=== PATIENT | male | born 1930 | race Caucasian/White ===

== ENCOUNTER → 2016-09-02 | Outpatient (CLI) | payer MEDICARE ==
[2016-09-02 09:11] LABS: CH 32.3; CHCM 33.5; HCT 48.7 % (39.0-53.0); HDW 2.67; HGB 15.8 gm/dL (13.0-17.5); MCH 31.5 pg (25.0-35.0); MCHC 32.5 g/dL (31.0-37.0); MCV 96.9 fL (80.0-100.0); Mean Platelet Volume 8.6; RBC 5.02 m/uL (4.30-5.90); RDW 14.2 % (11.5-15.5); WBC 4.4 k/uL (3.8-10.6)
[2016-09-02 10:13] LABS: Erythrocyte Sedimentation Rate 5 mm/hr (0-15)
[2016-09-02 12:41] LABS: ALT 31 U/L (21-72); AST 24 U/L (17-59); Alkaline Phosphatase 70 U/L (38-126); Anion Gap 10 mmol/L; Blood Urea Nitrogen 22 mg/dL (9-20); Calcium 9.3 mg/dL (8.4-10.2); Carbon Dioxide 28 mmol/L (22-30); Chloride 106 mmol/L (98-107); Cholesterol 191 mg/dL (<200); Glucose 80 mg/dL (74-99); HDL Cholesterol 51 mg/dL (40-60); Non-African American GFR(MDRD) 53 (>60 ml/min/1.73 sqM); Potassium 4.8 mmol/L (3.5-5.1); Sodium 144 mmol/L (137-145); Total Bilirubin 0.6 mg/dL (0.2-1.3); Total Protein 7.1 g/dL (6.3-8.2); Triglycerides 106 mg/dL (<150)
[2016-09-02 13:06] LABS: Prostate Specific Antigen 5.34 ng/mL (0.00-4.00)
[2016-09-02 13:14] LABS: Hemoglobin A1C 5.3 % (4.2-6.1)
== END | disposition home or self-care (01) ==
LOC: LABWHC1 07:49
PROVIDERS: ATTEND Internal Medicine
DX: I10 Essential (primary) hypertension (principal); E78.5 Hyperlipidemia, unspecified; N41.9 Inflammatory disease of prostate, unspecified
CPT/HCPCS: 36415; 80053; 80061; 83036; 84153; 84443; 85027; 85652

== ENCOUNTER 2017-12-22 01:30 | Emergency (ER) | payer MEDICARE ==
--- NOTE | 2017-12-22 02:13 | ED ---
Weakness HPI - General Chief complaint: Weakness Stated complaint: UTI,weakness Time Seen by Provider: 12/22/17 01:49 Source: patient Mode of arrival: wheelchair Limitations: no limitations - History of Present Illness Initial comments: This patient is an 87-year-old man who presents to be evaluated for worsening of generalized weakness. Things started about 24 hours ago now. He states that this was also accompanied by increasing frequency of urination. Patient relates that this same type of scenario happened when he had a urinary tract infection and then developed sepsis. Patient denies other symptoms. MD Complaint: generalized weakness, lack of energy -: hour(s) (24) Location: generalized Severity: moderate Consistency: constant Improves with: none Worsens with: other Context: history of similar - Related Data Home Medications Medication Instructions Recorded Confirmed Aspirin 81 mg PO DAILY 08/04/13 12/22/17 Enalapril [Vasotec] 10 mg PO DAILY 08/04/13 12/22/17 Omeprazole 40 mg PO AC-BRKFST 08/04/13 12/22/17 glyBURIDE/METFORMIN HCL 1 each PO DAILY 08/04/13 12/22/17 [Glucovance 2.5-500 mg Tablet] Finasteride [Proscar] 5 mg PO DAILY 12/22/17 12/22/17 Tasimelteon [Hetlioz] 20 mg PO DAILY 12/22/17 12/22/17 Previous Rx's Medication Instructions Recorded Levofloxacin [Levaquin] 750 mg PO DAILY #10 tab 12/22/17 Allergies Allergy/AdvReac Type Severity Reaction Status Date / Time No Known Allergies Allergy Verified 12/22/17 01:38 Review of Systems ROS Statement: Those systems with pertinent positive or pertinent negative responses have been documented in the HPI. ROS Other: All systems not noted in ROS Statement are negative. Constitutional: Reports: weakness (Generalized). Denies: fever, chills Respiratory: Denies: cough, dyspnea Cardiovascular: Denies: chest pain, palpitations, orthopnea, edema, syncope Gastrointestinal: Denies: abdominal pain, vomiting, diarrhea Genitourinary: Reports: urgency, frequency. Denies: dysuria, hematuria, testicular pain, testicular mass Musculoskeletal: Denies: back pain Skin: Denies: rash Neurological: Denies: headache, weakness, numbness, paresthesias Past Medical History Past Medical History: Diabetes Mellitus, Hypertension Additional Past Medical History / Comment(s): sciatica, back problems, UTIs History of Any Multi-Drug Resistant Organisms: None Reported Past Surgical History: Back Surgery Past Psychological History: No Psychological Hx Reported Smoking Status: Former smoker Past Alcohol Use History: Occasional Past Drug Use History: None Reported General Exam Limitations: no limitations General appearance: alert, in no apparent distress Head exam: Present: atraumatic, normocephalic Eye exam: Present: normal appearance. Absent: scleral icterus, conjunctival injection Respiratory exam: Present: normal lung sounds bilaterally. Absent: respiratory distress, wheezes, rales, rhonchi, stridor Cardiovascular Exam: Present: normal rhythm, tachycardia, systolic murmur ( Grade 1/6 systolic ejection murmur). Absent: diastolic murmur, rubs, gallop GI/Abdominal exam: Present: soft. Absent: distended, tenderness, guarding, rebound, rigid, mass, pulsatile mass Extremities exam: Present: normal inspection, normal capillary refill. Absent: pedal edema, joint swelling, calf tenderness Back exam: Present: normal inspection Neurological exam: Present: alert, oriented X3. Absent: motor sensory deficit Skin exam: Present: warm, dry, intact, normal color. Absent: rash Course Vital Signs 12/22/17 12/22/17 12/22/17 01:34 01:58 03:28 Temperature 98.2 F Pulse Rate 139 H 124 H 106 H Respiratory 18 20 18 Rate Blood Pressure 102/64 134/75 164/84 O2 Sat by Pulse 96 96 98 Oximetry Medical Decision Making - Lab Data Result diagrams: 12/22/17 01:56 12/22/17 01:56 Lab Results 12/22/17 12/22/17 12/22/17 Range/Units 01:56 01:56 01:56 WBC 8.3 (3.8-10.6) k/uL RBC 5.21 (4.30-5.90) m/uL Hgb 15.3 (13.0-17.5) gm/dL Hct 47.4 (39.0-53.0) % MCV 90.9 (80.0-100.0) fL MCH 29.4 (25.0-35.0) pg MCHC 32.4 (31.0-37.0) g/dL RDW 13.8 (11.5-15.5) % Plt Count 125 L (150-450) k/uL Neutrophils % 75 % Lymphocytes % 13 % Monocytes % 7 % Eosinophils % 3 % Basophils % 0 % Neutrophils # 6.2 (1.3-7.7) k/uL Lymphocytes # 1.1 (1.0-4.8) k/uL Monocytes # 0.6 (0-1.0) k/uL Eosinophils # 0.3 (0-0.7) k/uL Basophils # 0.0 (0-0.2) k/uL PT (9.0-12.0) sec INR (<1.2) APTT (22.0-30.0) sec Sodium 141 (137-145) mmol/L Potassium 4.4 (3.5-5.1) mmol/L Chloride 107 (98-107) mmol/L Carbon Dioxide 25 (22-30) mmol/L Anion Gap 9 mmol/L BUN 21 H (9-20) mg/dL Creatinine 1.13 (0.66-1.25) mg/dL Est GFR (CKD-EPI)AfAm 69 (>60 ml/min/1.73 sqM) Est GFR (CKD-EPI)NonAf 59 (>60 ml/min/1.73 sqM) Glucose 162 H (74-99) mg/dL Calcium 9.1 (8.4-10.2) mg/dL Magnesium 1.5 L (1.6-2.3) mg/dL Total Bilirubin 0.5 (0.2-1.3) mg/dL AST 20 (17-59) U/L ALT 23 (21-72) U/L Alkaline Phosphatase 65 (38-126) U/L Total Creatine Kinase 146 (55-170) U/L CK-MB (CK-2) 2.1 (0.0-2.4) ng/mL CK-MB (CK-2) Rel Index 1.4 Troponin I <0.012 (0.000-0.034) ng/mL NT-Pro-B Natriuret Pep pg/mL Total Protein 6.8 (6.3-8.2) g/dL Albumin 3.7 (3.5-5.0) g/dL TSH 3.260 (0.465-4.680) mIU/L Urine Color Urine Appearance (Clear) Urine pH (5.0-8.0) Ur Specific [place] (1.001-1.035) Urine Protein (Negative) Urine Glucose (UA) (Negative) Urine Ketones (Negative) Urine Blood (Negative) Urine Nitrite (Negative) Urine Bilirubin (Negative) Urine Urobilinogen (<2.0) mg/dL Ur Leukocyte Esterase (Negative) Urine RBC (0-5) /hpf Urine WBC (0-5) /hpf Urine WBC Clumps (None) /hpf Urine Bacteria (None) /hpf Hyaline Casts (0-2) /lpf Urine Mucus (None) /hpf 12/22/17 12/22/17 12/22/17 Range/Units 01:56 01:56 02:35 WBC (3.8-10.6) k/uL RBC (4.30-5.90) m/uL Hgb (13.0-17.5) gm/dL Hct (39.0-53.0) % MCV (80.0-100.0) fL MCH (25.0-35.0) pg MCHC (31.0-37.0) g/dL RDW (11.5-15.5) % Plt Count (150-450) k/uL Neutrophils % % Lymphocytes % % Monocytes % % Eosinophils % % Basophils % % Neutrophils # (1.3-7.7) k/uL Lymphocytes # (1.0-4.8) k/uL Monocytes # (0-1.0) k/uL Eosinophils # (0-0.7) k/uL Basophils # (0-0.2) k/uL PT 10.2 (9.0-12.0) sec INR 1.0 (<1.2) APTT 24.0 (22.0-30.0) sec Sodium (137-145) mmol/L Potassium (3.5-5.1) mmol/L Chloride (98-107) mmol/L Carbon Dioxide (22-30) mmol/L Anion Gap mmol/L BUN (9-20) mg/dL Creatinine (0.66-1.25) mg/dL Est GFR (CKD-EPI)AfAm (>60 ml/min/1.73 sqM) Est GFR (CKD-EPI)NonAf (>60 ml/min/1.73 sqM) Glucose (74-99) mg/dL Calcium (8.4-10.2) mg/dL Magnesium (1.6-2.3) mg/dL Total Bilirubin (0.2-1.3) mg/dL AST (17-59) U/L ALT (21-72) U/L Alkaline Phosphatase (38-126) U/L Total Creatine Kinase (55-170) U/L CK-MB (CK-2) (0.0-2.4) ng/mL CK-MB (CK-2) Rel Index Troponin I (0.000-0.034) ng/mL NT-Pro-B Natriuret Pep 363 pg/mL Total Protein (6.3-8.2) g/dL Albumin (3.5-5.0) g/dL TSH (0.465-4.680) mIU/L Urine Color Yellow Urine Appearance Clear (Clear) Urine pH 5.5 (5.0-8.0) Ur Specific [place] 1.012 (1.001-1.035) Urine Protein Trace H (Negative) Urine Glucose (UA) Negative (Negative) Urine Ketones Negative (Negative) Urine Blood Negative (Negative) Urine Nitrite Negative (Negative) Urine Bilirubin Negative (Negative) Urine Urobilinogen <2.0 (<2.0) mg/dL Ur Leukocyte Esterase Moderate H (Negative) Urine RBC 1 (0-5) /hpf Urine WBC 22 H (0-5) /hpf Urine WBC Clumps Rare H (None) /hpf Urine Bacteria Rare H (None) /hpf Hyaline Casts 3 H (0-2) /lpf Urine Mucus Rare H (None) /hpf Disposition Clinical Impression: Urinary tract infection, Dehydration Disposition: HOME SELF-CARE Condition: Good Instructions: Urinary Tract Infection in Men (ED) Prescriptions: Levofloxacin [Levaquin] 750 mg PO DAILY #10 tab Is patient prescribed a controlled substance at d/c from ED?: No Referrals: Bryce Hazel MD [Primary Care Provider] - 1-2 days
[2017-12-22 02:28] LABS: Creatine Kinase 146 U/L (55-170)
[2017-12-22 02:29] LABS: Albumin 3.7 g/dL (3.5-5.0); Basophils % (A) 0 %; Calcium 9.1 mg/dL (8.4-10.2); Eosinophils # (A) 0.3 k/uL (0-0.7); Eosinophils % (A) 3 %; HCT 47.4 % (39.0-53.0); HGB 15.3 gm/dL (13.0-17.5); Lymphocytes # (A) 1.1 k/uL (1.0-4.8); Lymphocytes % (A) 13 %; MCH 29.4 pg (25.0-35.0); MCHC 32.4 g/dL (31.0-37.0); MCV 90.9 fL (80.0-100.0); Magnesium 1.5 mg/dL (1.6-2.3); Mean Platelet Volume 8.4; Monocytes # (A) 0.6 k/uL (0-1.0); Monocytes % (A) 7 %; Neutrophils # (A) 6.2 k/uL (1.3-7.7); Neutrophils % (A) 75 %; Platelet Count 125 k/uL (150-450); Potassium 4.4 mmol/L (3.5-5.1); RBC 5.21 m/uL (4.30-5.90); RDW 13.8 % (11.5-15.5); Total Bilirubin 0.5 mg/dL (0.2-1.3); Total Protein 6.8 g/dL (6.3-8.2); WBC 8.3 k/uL (3.8-10.6)
[2017-12-22 02:34] LABS: Prothrombin Time 10.2 sec (9.0-12.0)
[2017-12-22 02:41] LABS: Creatine Kinase MB 2.1 ng/mL (0.0-2.4); Troponin I <0.012 ng/mL (0.000-0.034)
[2017-12-22] MEDS ORDERED: SODIUM CHLORIDE 0.9% 1,000 ML IV ONE (03:27)
--- NOTE | 2017-12-22 03:32 | XR ---
EXAM: XR Chest, 1 View CLINICAL HISTORY: ITS.REASON XR Reason: dysrhythmia TECHNIQUE: Frontal view of the chest. COMPARISON: No relevant prior studies available. IMPRESSION: Cardiomegaly. No pleural effusion. Bibasilar atelectasis. No acute osseous findings.
[2017-12-22 03:33] LABS: Appearance,Urine Clear (Clear); Bacteria,Urine Rare /hpf; Bilirubin,Urine Negative (Negative); Blood,Urine Negative (Negative); Color,Urine Yellow; Glucose,Urine (UA) Negative (Negative); Hyaline Casts,Urine 3 /lpf (0-2); Ketones,Urine Negative (Negative); Leukocyte Esterase,Urine Moderate (Negative); Mucus,Urine Rare /hpf; Nitrite,Urine Negative (Negative); PH, Urine 5.5 (5.0-8.0); Protein,Urine Trace (Negative); RBC,Urine 1 /hpf (0-5); Specific Gravity,Urine 1.012 (1.001-1.035); Urobilinogen,Urine <2.0 mg/dL (<2.0); WBC,Urine 22 /hpf (0-5)
[2017-12-22] MEDS ORDERED: LEVOFLOXACIN 750 MG TAB PO STA (04:55)
[2017-12-22 05:19] VITALS: BP 144/70; PULSE 104; RESP 20; TEMP 98
== END 2017-12-22 05:19 | disposition home or self-care (01) ==
LOC: EC 01:30
DX: N39.0 Urinary tract infection, site not specified (principal); E86.0 Dehydration; R53.1 Weakness; E11.9 Type 2 diabetes mellitus without complications; I10 Essential (primary) hypertension; Z87.891 Personal history of nicotine dependence; Z79.82 Long term (current) use of aspirin; Z79.84 Long term (current) use of oral hypoglycemic drugs; Z79.899 Other long term (current) drug therapy
CPT/HCPCS: 36415; 71045; 80053; 81001; 82550; 82553; 83735; 83880; 84443; 84484; 85025; 85610; 85730; 93005; 96360; 99285

== ENCOUNTER → 2018-08-30 | Outpatient (CLI) | payer MEDICARE ==
[2018-08-30 09:55] LABS: HCT 46.9 % (39.0-53.0); HGB 14.8 gm/dL (13.0-17.5); MCH 29.8 pg (25.0-35.0); MCHC 31.6 g/dL (31.0-37.0); MCV 94.2 fL (80.0-100.0); Mean Platelet Volume 8.7; Platelet Count 146 k/uL (150-450); RBC 4.97 m/uL (4.30-5.90); RDW 13.8 % (11.5-15.5); WBC 5.3 k/uL (3.8-10.6)
[2018-08-30 11:41] LABS: Erythrocyte Sedimentation Rate 7 mm/hr (0-15)
[2018-08-30 16:07] LABS: African American GFR (CKD) 63.1 (60.0-200.0); Albumin 4.3 g/dL (3.80-4.90); Albumin/Globulin Ratio 1.87 (1.60-3.17); Anion Gap 9.3 mmol/L (4.00-12.00); Calcium 9.3 mg/dL (8.7-10.3); Carbon Dioxide 28.7 mmol/L (21.6-31.8); Globulin 2.3 g/dL (1.6-3.3); LDL Cholesterol,Calculated 64.6 mg/dL (0.0-131.0); Total Bilirubin 0.5 mg/dL (0.2-1.2); Total Protein 6.6 g/dL (6.2-8.2); Uric Acid 5.1 mg/dL (3.7-8.7); VLDL Calculation 37.4 mg/dL (5.00-40.00)
[2018-08-30 17:20] LABS: Hemoglobin A1C 6.3 % (4.0-6.0)
== END | disposition home or self-care (01) ==
LOC: LABWHC1 08:03
PROVIDERS: ATTEND Internal Medicine
DX: E78.2 Mixed hyperlipidemia (principal); I10 Essential (primary) hypertension; E11.9 Type 2 diabetes mellitus without complications; N41.9 Inflammatory disease of prostate, unspecified; R51 Headache; I25.10 Atherosclerotic heart disease of native coronary artery without angina pectoris; M19.90 Unspecified osteoarthritis, unspecified site
CPT/HCPCS: 36415; 80053; 80061; 83036; 84153; 84443; 84550; 85027; 85652

== ENCOUNTER 2018-12-22 03:48 | Observation (INO) | payer MEDICARE ==
[2018-12-22] MEDS ORDERED: ACETAMINOPHEN TAB 325 MG TAB PO STA (03:56)
[2018-12-22] MEDS: SODIUM CHLORIDE 0.9% 500 ML 500 ML IV SCH (04:12)
--- NOTE | 2018-12-22 04:31 | ED ---
Male Urogenital HPI - General Chief complaint: Urogenital Stated complaint: Painful Urination Time Seen by Provider: 12/22/18 03:50 Source: EMS Mode of arrival: EMS Limitations: no limitations - History of Present Illness Initial comments: Apolinar is am 88yo male with asked medical history recurrent urinary tract infections related to prostatic hypertrophy. Patient follows with the urologist in [place] where he lives during the [place]. Patient reports that last year he underwent a bladder lift procedure and in attempts to avoid having to have a TU RP. Patient reports that he has not had a urinary tract infection since that time. Patient states that for the past 2 days she's had a little bit of dysuria and was concerned he was developing a urinary tract infection however during the night tonight he began having urinary frequency hesitancy and worsening dysuria. Patient reports he's needing to urinate every 30 minutes and each time he gets up to urinate he progressively feels weaker and weaker. - Related Data Home Medications Medication Instructions Recorded Confirmed Aspirin 81 mg PO DAILY 08/04/13 12/22/17 Enalapril [Vasotec] 10 mg PO DAILY 08/04/13 12/22/17 Omeprazole 40 mg PO AC-BRKFST 08/04/13 12/22/17 glyBURIDE/METFORMIN HCL 1 each PO DAILY 08/04/13 12/22/17 [Glucovance 2.5-500 mg Tablet] Finasteride [Proscar] 5 mg PO DAILY 12/22/17 12/22/17 Tasimelteon [Hetlioz] 20 mg PO DAILY 12/22/17 12/22/17 Previous Rx's Medication Instructions Recorded Levofloxacin [Levaquin] 750 mg PO DAILY #10 tab 12/22/17 Allergies Allergy/AdvReac Type Severity Reaction Status Date / Time No Known Allergies Allergy Verified 12/22/18 03:57 Review of Systems ROS Statement: Those systems with pertinent positive or pertinent negative responses have been documented in the HPI. ROS Other: All systems not noted in ROS Statement are negative. Past Medical History Past Medical History: Diabetes Mellitus, Hypertension Additional Past Medical History / Comment(s): sciatica, back problems, UTIs, History of Any Multi-Drug Resistant Organisms: None Reported Past Surgical History: Adenoidectomy, Appendectomy, Back Surgery, Tonsillectomy Additional Past Surgical History / Comment(s): achilles right side repair, Past Psychological History: No Psychological Hx Reported Smoking Status: Former smoker Past Alcohol Use History: Occasional Past Drug Use History: None Reported General Exam - General Exam Comments Initial Comments: Physical Exam GENERAL: Patient is well-developed and well-nourished. Patient is nontoxic and well- hydrated and is in no distress. HENT: Normocephalic, Atraumatic. EYES: PERRL, EOMI PULMONARY: Unlabored respirations. No audible rales rhonchi or wheezing was noted. CARDIOVASCULAR: There is a regular rate and rhythm without any murmurs gallops or rubs. ABDOMEN: Soft and nontender with normal bowel sounds. SKIN: Skin is clear with no lesions or rashes and otherwise unremarkable. : Deferred NEUROLOGIC: Patient is alert and oriented x3. Moving all extremities spontaneously MUSCULOSKELETAL: Normal extremities with adequate strength and full range of motion. No lower extremity swelling or edema. No calf tenderness. PSYCHIATRIC: Normal psychiatric evaluation. Limitations: no limitations Course Vital Signs 12/22/18 12/22/18 03:50 05:47 Temperature 100.4 F H 100.6 F H Pulse Rate 110 H 100 Respiratory 17 17 Rate Blood Pressure 118/71 146/67 O2 Sat by Pulse 98 97 Oximetry Medical Decision Making - Medical Decision Making She was seen and evaluated history was obtained from patient 88 her history of recurrent urinary tract infections in the past he took 1 dose of Levaquin prior to calling EMS. Patient is tachycardic and febrile on arrival Sepsis workup was initiated urinalysis consistent with urinary tract infection Rocephin was ordered Given patient's advanced age she was given only 1.5 L of fluid, and sitting that the patient is not in septic shock I do not feel that 30 mL/kg would be an appropriate dose. He appears well-hydrated he's tolerating by mouth intake. Labs resulted with no leukocytosis however there is lactic acidosis. Given the patient's advanced age, history of severe sepsis secondary UTI in the past I do feel he would benefit from admission the hospital IV fluids and antibiotics. Patient is agreeable to this plan. Patient care was discussed with Dr. Yousif who agrees with plan for admission. - Lab Data Result diagrams: 12/22/18 03:54 12/22/18 03:54 Lab Results 12/22/18 12/22/18 12/22/18 Range/Units 03:54 03:54 03:54 WBC 7.7 (3.8-10.6) k/uL RBC 4.73 (4.30-5.90) m/uL Hgb 14.0 (13.0-17.5) gm/dL Hct 44.2 (39.0-53.0) % MCV 93.4 (80.0-100.0) fL MCH 29.6 (25.0-35.0) pg MCHC 31.6 (31.0-37.0) g/dL RDW 13.5 (11.5-15.5) % Plt Count 120 L (150-450) k/uL Neutrophils % 86 % Lymphocytes % 7 % Monocytes % 3 % Eosinophils % 4 % Basophils % 0 % Neutrophils # 6.6 (1.3-7.7) k/uL Lymphocytes # 0.5 L (1.0-4.8) k/uL Monocytes # 0.3 (0-1.0) k/uL Eosinophils # 0.3 (0-0.7) k/uL Basophils # 0.0 (0-0.2) k/uL PT (9.0-12.0) sec INR (<1.2) APTT (22.0-30.0) sec Sodium 140 (137-145) mmol/L Potassium 4.6 (3.5-5.1) mmol/L Chloride 104 (98-107) mmol/L Carbon Dioxide 27 (22-30) mmol/L Anion Gap 9 mmol/L BUN 20 (9-20) mg/dL Creatinine 1.18 (0.66-1.25) mg/dL Est GFR (CKD-EPI)AfAm 64 (>60 ml/min/1.73 sqM) Est GFR (CKD-EPI)NonAf 56 (>60 ml/min/1.73 sqM) Glucose 136 H (74-99) mg/dL Plasma Lactic Acid Aubrey 2.1 H* (0.7-2.0) mmol/L Calcium 8.8 (8.4-10.2) mg/dL Total Bilirubin 0.7 (0.2-1.3) mg/dL AST 26 (17-59) U/L ALT 15 L (21-72) U/L Alkaline Phosphatase 83 (38-126) U/L Total Protein 7.1 (6.3-8.2) g/dL Albumin 3.8 (3.5-5.0) g/dL Urine Color Urine Appearance (Clear) Urine pH (5.0-8.0) Ur Specific [place] (1.001-1.035) Urine Protein (Negative) Urine Glucose (UA) (Negative) Urine Ketones (Negative) Urine Blood (Negative) Urine Nitrite (Negative) Urine Bilirubin (Negative) Urine Urobilinogen (<2.0) mg/dL Ur Leukocyte Esterase (Negative) Urine RBC (0-5) /hpf Urine WBC (0-5) /hpf Ur Squamous Epith Cells (0-4) /hpf Urine Bacteria (None) /hpf Urine Mucus (None) /hpf 12/22/18 12/22/18 Range/Units 03:54 03:59 WBC (3.8-10.6) k/uL RBC (4.30-5.90) m/uL Hgb (13.0-17.5) gm/dL Hct (39.0-53.0) % MCV (80.0-100.0) fL MCH (25.0-35.0) pg MCHC (31.0-37.0) g/dL RDW (11.5-15.5) % Plt Count (150-450) k/uL Neutrophils % % Lymphocytes % % Monocytes % % Eosinophils % % Basophils % % Neutrophils # (1.3-7.7) k/uL Lymphocytes # (1.0-4.8) k/uL Monocytes # (0-1.0) k/uL Eosinophils # (0-0.7) k/uL Basophils # (0-0.2) k/uL PT 10.7 (9.0-12.0) sec INR 1.0 (<1.2) APTT 22.8 (22.0-30.0) sec Sodium (137-145) mmol/L Potassium (3.5-5.1) mmol/L Chloride (98-107) mmol/L Carbon Dioxide (22-30) mmol/L Anion Gap mmol/L BUN (9-20) mg/dL Creatinine (0.66-1.25) mg/dL Est GFR (CKD-EPI)AfAm (>60 ml/min/1.73 sqM) Est GFR (CKD-EPI)NonAf (>60 ml/min/1.73 sqM) Glucose (74-99) mg/dL Plasma Lactic Acid Aubrey (0.7-2.0) mmol/L Calcium (8.4-10.2) mg/dL Total Bilirubin (0.2-1.3) mg/dL AST (17-59) U/L ALT (21-72) U/L Alkaline Phosphatase (38-126) U/L Total Protein (6.3-8.2) g/dL Albumin (3.5-5.0) g/dL Urine Color Yellow Urine Appearance Cloudy (Clear) Urine pH 6.5 (5.0-8.0) Ur Specific [place] 1.015 (1.001-1.035) Urine Protein 1+ H (Negative) Urine Glucose (UA) Negative (Negative) Urine Ketones Negative (Negative) Urine Blood Moderate H (Negative) Urine Nitrite Positive (Negative) Urine Bilirubin Negative (Negative) Urine Urobilinogen <2.0 (<2.0) mg/dL Ur Leukocyte Esterase Large H (Negative) Urine RBC 112 H (0-5) /hpf Urine WBC >182 H (0-5) /hpf Ur Squamous Epith Cells <1 (0-4) /hpf Urine Bacteria Rare H (None) /hpf Urine Mucus Rare H (None) /hpf - EKG Data -: EKG Interpreted by Me EKG Comments: EKG was obtained due to tachycardia, EKG obtained at 4:05 AM, rate is 112 rhythm is sinus tachycardia with frequent PVCs. Normal axis, significantly elevated NC interval, NC 376, QRS 88, QTC 444. There is no acute ST elevations or depressions no evidence of acute ischemia or infarction Disposition Clinical Impression: Urinary tract infection, Sepsis Disposition: ADMITTED IP TO THIS HOSP Condition: Stable Referrals: Bryce Hazel MD [Primary Care Provider] - 1-2 days
[2018-12-22 04:58] LABS: Basophils % (A) 0 %; Eosinophils # (A) 0.3 k/uL (0-0.7); Eosinophils % (A) 4 %; HCT 44.2 % (39.0-53.0); Lymphocytes # (A) 0.5 k/uL (1.0-4.8); Lymphocytes % (A) 7 %; MCH 29.6 pg (25.0-35.0); MCHC 31.6 g/dL (31.0-37.0); MCV 93.4 fL (80.0-100.0); Mean Platelet Volume 8.7; Monocytes # (A) 0.3 k/uL (0-1.0); Monocytes % (A) 3 %; Neutrophils # (A) 6.6 k/uL (1.3-7.7); Neutrophils % (A) 86 %; Platelet Count 120 k/uL (150-450); RBC 4.73 m/uL (4.30-5.90); RDW 13.5 % (11.5-15.5); WBC 7.7 k/uL (3.8-10.6)
[2018-12-22 05:02] LABS: Partial Thromboplastin Time 22.8 sec (22.0-30.0); Prothrombin Time 10.7 sec (9.0-12.0)
[2018-12-22 05:15] LABS: Appearance,Urine Cloudy (Clear); Bacteria,Urine Rare /hpf; Bilirubin,Urine Negative (Negative); Blood,Urine Moderate (Negative); Color,Urine Yellow; Glucose,Urine (UA) Negative (Negative); Ketones,Urine Negative (Negative); Leukocyte Esterase,Urine Large (Negative); Mucus,Urine Rare /hpf; Nitrite,Urine Positive (Negative); PH, Urine 6.5 (5.0-8.0); Protein,Urine 1+ (Negative); RBC,Urine 112 /hpf (0-5); Specific Gravity,Urine 1.015 (1.001-1.035); Squamous Epithelial Cell,Urine <1 /hpf (0-4); Urobilinogen,Urine <2.0 mg/dL (<2.0)
[2018-12-22 05:24] LABS: Albumin 3.8 g/dL (3.5-5.0); Calcium 8.8 mg/dL (8.4-10.2); Total Bilirubin 0.7 mg/dL (0.2-1.3); Total Protein 7.1 g/dL (6.3-8.2)
[2018-12-22] MEDS ORDERED: cefTRIAXone IN SWFI 1,000 MG/10 ML SYRINGE IVP STA (05:28)
[2018-12-22 05:33] LABS: Potassium 4.6 mmol/L (3.5-5.1)
[2018-12-22 07:30] VITALS: BMI 27.5
[2018-12-22] MEDS: ASPIRIN 81 MG PO SCH (08:52)
[2018-12-22] MEDS: FINASTERIDE 5 MG TAB PO SCH (08:52)
[2018-12-22] MEDS: LISINOPRIL 20 MG TAB PO SCH (08:52)
[2018-12-22 09:30] LABS: Basophils # (A) 0.3 k/uL (0-0.2); Basophils % (A) 3 %; Eosinophils # (A) 0.3 k/uL (0-0.7); Eosinophils % (A) 3 %; HGB 12.8 gm/dL (13.0-17.5); Lymphocytes # (A) 0.5 k/uL (1.0-4.8); Lymphocytes % (A) 5 %; MCH 30.4 pg (25.0-35.0); MCHC 32.1 g/dL (31.0-37.0); MCV 94.6 fL (80.0-100.0); Mean Platelet Volume 8.2; Monocytes # (A) 0.5 k/uL (0-1.0); Monocytes % (A) 5 %; Neutrophils # (A) 8.1 k/uL (1.3-7.7); Neutrophils % (A) 84 %; Platelet Count 118 k/uL (150-450); RBC 4.23 m/uL (4.30-5.90); RDW 13.5 % (11.5-15.5); WBC 9.6 k/uL (3.8-10.6)
[2018-12-22 10:11] LABS: Albumin 3.3 g/dL (3.5-5.0); Calcium 8.3 mg/dL (8.4-10.2); Potassium 4.7 mmol/L (3.5-5.1); Total Bilirubin 0.5 mg/dL (0.2-1.3)
--- NOTE | 2018-12-22 10:29 | P.HPIM ---
History of Present Illness H&P Date: 12/22/18 Chief Complaint: Urinary tract infection This is an 88-year-old male patient of Dr. Hazel. Patient presented to ER with complaints of symptoms of urinary tract infection. Patient reports that he gets frequent urinary tract infections due to his known prostatic hypertrophy. Patient states that throughout the night he gets symptoms of dysuria and hesitancy that are usually associated with urinary tract infection. Patient reports over the past 2 days he's had minimum symptoms but symptoms became progressively worse throughout night. Patient reports that he feels shaky and weak when he gets a urinary tract infection. Additional medical history includes diabetes mellitus, hypertension, sciatica and ex-smoker. Patient reports he has followed with urology in [place] in the past. Lactic acid 2.1. Urinary analysis showing large amount of leukocyte Estrace. Urine culture has been ordered. Patient started on Rocephin. Repeat lactic acid 1.3. Patient is currently resting comfortably in bed. Patient reports improvement with 1 dose of IV antibiotics. Patient denies chest pain or shortness of breath. Patient denies nausea vomiting or diarrhea. Patient denies any urinary burning or frequency. Review of Systems please refer to HPI otherwise unremarkable Past Medical History Past Medical History: Diabetes Mellitus, Hypertension Additional Past Medical History / Comment(s): sciatica, back problems, UTIs, History of Any Multi-Drug Resistant Organisms: None Reported Past Surgical History: Adenoidectomy, Appendectomy, Back Surgery, Tonsillectomy Additional Past Surgical History / Comment(s): achilles right side repair, Past Psychological History: No Psychological Hx Reported Smoking Status: Former smoker Past Alcohol Use History: Occasional Past Drug Use History: None Reported Medications and Allergies Home Medications Medication Instructions Recorded Confirmed Type Aspirin 81 mg PO DAILY 08/04/13 12/22/18 History Omeprazole 40 mg PO AC-BRKFST 08/04/13 12/22/18 History Finasteride [Proscar] 5 mg PO DAILY 12/22/17 12/22/18 History Atorvastatin Calcium [Lipitor] 20 mg PO HS 12/22/18 12/22/18 History Enalapril [Vasotec] 20 mg PO DAILY 12/22/18 12/22/18 History Latanoprost/Pf [Latanoprost 0.005% 1 drop BOTH EYES HS 12/22/18 12/22/18 History Eye Drop] Tamsulosin HCl [Flomax] 0.4 mg PO HS 12/22/18 12/22/18 History glipiZIDE XL [Glucotrol Xl] 2.5 mg PO HS 12/22/18 12/22/18 History metFORMIN HCL [Glucophage] 500 mg PO HS 12/22/18 12/22/18 History Allergies Allergy/AdvReac Type Severity Reaction Status Date / Time No Known Allergies Allergy Verified 12/22/18 06:58 Physical Exam Vitals: Vital Signs Temp Pulse Pulse Resp BP BP Pulse Ox 12/22/18 08:11 98.1 F 88 20 153/71 96 12/22/18 06:56 99.1 F 96 16 125/66 94 L 12/22/18 05:47 100.6 F H 100 17 146/67 97 12/22/18 03:50 100.4 F H 110 H 17 118/71 98 Intake and Output 12/21/18 12/22/18 12/22/18 22:59 06:59 14:59 Other: Voiding Method Urinal Urinal Weight 99.79 kg Please refer to HPI otherwise unremarkable Results CBC & Chem 7: 12/22/18 09:11 12/22/18 09:11 Labs: Abnormal Lab Results - Last 24 Hours (Table) 12/22/18 12/22/18 12/22/18 Range/Units 03:54 03:54 03:54 RBC (4.30-5.90) m/uL Hgb (13.0-17.5) gm/dL Plt Count 120 L (150-450) k/uL Neutrophils # (1.3-7.7) k/uL Lymphocytes # 0.5 L (1.0-4.8) k/uL Basophils # (0-0.2) k/uL Glucose 136 H (74-99) mg/dL Plasma Lactic Acid Aubrey 2.1 H* (0.7-2.0) mmol/L Calcium (8.4-10.2) mg/dL AST (17-59) U/L ALT 15 L (21-72) U/L Total Protein (6.3-8.2) g/dL Albumin (3.5-5.0) g/dL Urine Protein (Negative) Urine Blood (Negative) Ur Leukocyte Esterase (Negative) Urine RBC (0-5) /hpf Urine WBC (0-5) /hpf Urine Bacteria (None) /hpf Urine Mucus (None) /hpf 12/22/18 12/22/18 12/22/18 Range/Units 03:59 09:11 09:11 RBC 4.23 L (4.30-5.90) m/uL Hgb 12.8 L (13.0-17.5) gm/dL Plt Count 118 L (150-450) k/uL Neutrophils # 8.1 H (1.3-7.7) k/uL Lymphocytes # 0.5 L (1.0-4.8) k/uL Basophils # 0.3 H (0-0.2) k/uL Glucose 147 H (74-99) mg/dL Plasma Lactic Acid Aubrey (0.7-2.0) mmol/L Calcium 8.3 L (8.4-10.2) mg/dL AST 16 L (17-59) U/L ALT 15 L (21-72) U/L Total Protein 6.0 L (6.3-8.2) g/dL Albumin 3.3 L (3.5-5.0) g/dL Urine Protein 1+ H (Negative) Urine Blood Moderate H (Negative) Ur Leukocyte Esterase Large H (Negative) Urine RBC 112 H (0-5) /hpf Urine WBC >182 H (0-5) /hpf Urine Bacteria Rare H (None) /hpf Urine Mucus Rare H (None) /hpf Thrombosis Risk Factor Assmnt - Choose All That Apply Any of the Below Risk Factors Present?: Yes Each Factor Represents 1 point: Obesity (BMI >25) Other Risk Factors: Yes Each Risk Factor Represents 3 Points: Age 75 years or older Other congenital or acquired thrombophilia - If yes, enter type in comment: No Thrombosis Risk Factor Assessment Total Risk Factor Score: 4 Thrombosis Risk Factor Assessment Level: Moderate Risk Assessment and Plan Assessment: 1. Urinary tract infection with sepsis on admission. Febrile. Lactic acid 2.1. UA showing moderate amount of leukocyte Estrace. Urine culture ordered. Patient started on Rocephin. Repeat lactic complete 2. History of frequent UTIs due to known history of BPH. Patient reports he is followed with the urologist out of [place] 3. Benign prostatic hypertrophy. Patient maintained on Flomax and Proscar 4. Diabetes mellitus type 2. Home meds resumed 5. Hyperlipidemia. Statin resumed 6. History of essential hypertension DVT prophylaxis heparin. GI prophylaxis Pepcid Time with Patient: Greater than 30 (Greater than 60% of the total time spent in counseling and coordination of care. I performed an examination of the patient and discussed their management with the Nurse Practitioner. I have reviewed the Nurse Practitioner's notes and agree with the documented findings and plan of care)
[2018-12-22 12:08] LABS: Glucose,Whole Blood 127 mg/dL (75-99)
[2018-12-22 17:13] LABS: Glucose,Whole Blood 109 mg/dL (75-99)
[2018-12-22 20:13] LABS: Glucose,Whole Blood 156 mg/dL (75-99)
[2018-12-22] MEDS: HEPARIN SODIUM,PORCINE 5,000 UNIT/ML 1 ML VIAL SQ SCH (20:53)
[2018-12-22] MEDS ORDERED: metFORMIN 500 MG TAB PO SCH (21:00)
[2018-12-22] MEDS ORDERED: TAMSULOSIN 0.4 MG CAP.ER.24H PO SCH (21:00)
[2018-12-22] MEDS ORDERED: ATORVASTATIN 20 MG TAB PO SCH (21:00)
[2018-12-22] MEDS ORDERED: LATANOPROST 0.005% OPHTH DROPS 2.5 ML BTL BOTH EYES SCH (21:00)
[2018-12-22 21:06] VITALS: RESP 16
[2018-12-23 07:14] LABS: Glucose,Whole Blood 101 mg/dL (75-99)
[2018-12-23 07:24] LABS: Basophils % (A) 0 %; Eosinophils # (A) 0.2 k/uL (0-0.7); Eosinophils % (A) 3 %; HCT 41.3 % (39.0-53.0); HGB 13.4 gm/dL (13.0-17.5); Lymphocytes % (A) 11 %; MCH 30.4 pg (25.0-35.0); MCHC 32.5 g/dL (31.0-37.0); MCV 93.4 fL (80.0-100.0); Mean Platelet Volume 7.5; Monocytes # (A) 0.6 k/uL (0-1.0); Monocytes % (A) 6 %; Neutrophils # (A) 6.7 k/uL (1.3-7.7); Neutrophils % (A) 77 %; Platelet Count 111 k/uL (150-450); RBC 4.42 m/uL (4.30-5.90); RDW 13.2 % (11.5-15.5); WBC 8.7 k/uL (3.8-10.6)
[2018-12-23] MEDS ORDERED: PANTOPRAZOLE 40 MG TABLET PO SCH (07:30)
[2018-12-23 07:43] LABS: Albumin 3.6 g/dL (3.5-5.0); Calcium 8.9 mg/dL (8.4-10.2); Total Bilirubin 0.8 mg/dL (0.2-1.3); Total Protein 6.8 g/dL (6.3-8.2)
[2018-12-23 07:50] LABS: Potassium 4.7 mmol/L (3.5-5.1)
[2018-12-23] MEDS: HEPARIN SODIUM,PORCINE 5,000 UNIT/ML 1 ML VIAL SQ SCH (08:16)
[2018-12-23] MEDS: FINASTERIDE 5 MG TAB PO SCH (08:16)
[2018-12-23] MEDS: ASPIRIN 81 MG PO SCH (08:16)
[2018-12-23] MEDS: LISINOPRIL 20 MG TAB PO SCH (08:16)
[2018-12-23] MEDS ORDERED: FAMOTIDINE 20 MG TAB PO SCH (09:00)
[2018-12-23 12:00] LABS: Glucose,Whole Blood 159 mg/dL (75-99)
[2018-12-23] MEDS ORDERED: APIXABAN 5 MG TAB PO SCH (13:15)
--- NOTE | 2018-12-23 13:19 | P.CRDCN ---
History of Present Illness History of present illness: This is a pleasant 88 showed male past medical history significant for hypertension, diabetes mellitus, peripheral vascular disease status post right carotid endarterectomy, former nicotine dependence and frequent urinary tract infections. He lives in [place] in the winter and follows with a dredge runner there. He states he has been told in the past that he does have atrial fib rillation however is not on termite control servicer anti-coagulation for an unknown reason. We have been asked to see him in consultation for abnormal EKG. He is currently being treated for urinary tract infection. EKG obtained on admission revealed atrial fibrillation with frequent multi-focal PVC's, T-wave abnormalities inferior/laterally heart rate 112. He is seen and examined sitting up in bed in no acute distress. He denies chest pain, shortness of breath, dizziness or palpitations. Laboratory data reviewed, WBC 9.6, hgb 12.8, plt 118, sodium 140, potassium 4.7, creatinine 1.21, lactic acid on admission 2.1 repeat today 1.3. Current daily cardiac medications include aspirin 81 mg daily, enalapril 20 mg daily, atorvastatin 20 mg daily. At the time of my exam: CONSTITUTIONAL: Denies fever. Denies chills. EYES: Denies blurred vision. Denies vision changes. Denies eye pain. EARS, NOSE, MOUTH & THROAT: Denies headache. Denies sore throat. Denies ear pain. CARDIOVASCULAR: Denies chest pain. Denies shortness of breath. Denies orthopnea. Denies PND. Denies palpitations. RESPIRATORY: Denies cough. GASTROINTESTINAL: Denies abdominal pain. Denies diarrhea. Denies constipation. Denies nausea. Denies vomiting. MUSCULOSKELETAL: Denies myalgias. INTEGUMENTARY: Denies pruitis. Denies rash. NEUROLOGIC: Denies numbness. Denies tingling. Denies weakness. PSYCHIATRIC: Denies anxiety. Denies depression. ENDOCRINE: Denies fatigue. Denies weight change. Denies polydipsia. Denies polyurina. GENITOURINARY: Denies burning, hematuria or urgency with micturation. HEMATOLOGIC: Denies history of anemia. Denies bleeding. Blood pressure 149/79 heart rate 93 afebrile maintaining oxygen saturation on room air GENERAL: This is a 88-year-old male in no apparent distress at the time of my examination. HEENT: Head is atraumatic, normocephalic. Pupils are equal, round. Sclerae anicteric. Conjunctivae are clear. Mucous membranes of the mouth are moist. Neck is supple. There is no jugular venous distention. No carotid bruit is heard. LUNGS: Clear to auscultation no wheezes, rales or rhonchi. No chest wall tenderness is noted on palpation or with deep breathing. HEART: Irregular rate and rhythm without murmurs, rubs or gallops. S1 and S2 heard. ABDOMEN: Soft, nontender. Bowel sounds are heard. No organomegaly noted. EXTREMITIES: No evidence of peripheral edema and no calf tenderness noted. VASCULAR: Radial and dorsalis pedis pulses palpated, no evidence of clubbing. NEUROLOGIC: Patient is awake, alert and oriented x3. ASSESSMENT Paroxysmal atrial fibrillation, currently rate controlled on long-term anticoagulation. Urinary tract infection Hypertension Dyslipidemia Diabetes mellitus Peripheral vascular disease status post carotid endarterectomy PLAN Initiate on termite control servicer anti-coagulation for thromboembolic protection along with lopressor 25 mg BID. Obtain 2-D echocardiogram and Doppler study to assess cardiac structure and function. Recommend close follow up with dredge runner when he returns to [place] at the end of December. Thank you kindly for this consultation. Nurse Practitioner note has been reviewed, I agree with a documented findings and plan of care. Patient was seen and examined. Past Medical History Past Medical History: Diabetes Mellitus, Hypertension Additional Past Medical History / Comment(s): sciatica, back problems, UTIs, History of Any Multi-Drug Resistant Organisms: None Reported Past Surgical History: Adenoidectomy, Appendectomy, Back Surgery, Tonsillectomy Additional Past Surgical History / Comment(s): achilles right side repair, Past Psychological History: No Psychological Hx Reported Smoking Status: Former smoker Past Alcohol Use History: Occasional Past Drug Use History: None Reported Medications and Allergies Home Medications Medication Instructions Recorded Confirmed Type Aspirin 81 mg PO DAILY 08/04/13 12/22/18 History Omeprazole 40 mg PO AC-BRKFST 08/04/13 12/22/18 History Finasteride [Proscar] 5 mg PO DAILY 12/22/17 12/22/18 History Atorvastatin Calcium [Lipitor] 20 mg PO HS 12/22/18 12/22/18 History Enalapril [Vasotec] 20 mg PO DAILY 12/22/18 12/22/18 History Latanoprost/Pf [Latanoprost 0.005% 1 drop BOTH EYES HS 12/22/18 12/22/18 History Eye Drop] Naproxen Sod/Diphenhydramine 2 each PO HS 12/22/18 12/22/18 History [Aleve Pm Caplet] Tamsulosin HCl [Flomax] 0.4 mg PO HS 12/22/18 12/22/18 History glipiZIDE XL [Glucotrol Xl] 2.5 mg PO HS 12/22/18 12/22/18 History metFORMIN HCL [Glucophage] 500 mg PO HS 12/22/18 12/22/18 History Allergies Allergy/AdvReac Type Severity Reaction Status Date / Time No Known Allergies Allergy Verified 12/22/18 06:58 Physical Exam Vitals: Vital Signs Temp Pulse Resp BP Pulse Ox 12/23/18 05:00 98.3 F 93 16 149/79 95 12/22/18 21:06 97.4 F L 74 16 144/67 95 Intake and Output 12/22/18 12/23/18 12/23/18 22:59 06:59 14:59 Intake Total 50 590 Balance 50 590 Intake: Intake, IV Titration 50 Amount cefTRIAXone 1 gm In 50 Sodium Chloride 0.9% 50 ml @ 100 mls/hr IVPB [facility] Rx#:[id number] Oral 590 Other: Voiding Method Toilet Toilet # Voids 2 Results 12/23/18 06:35 12/23/18 06:35 Cardiac Enzymes 12/23/18 Range/Units 06:35 AST 34 (17-59) U/L CBC 12/23/18 Range/Units 06:35 WBC 8.7 (3.8-10.6) k/uL RBC 4.42 (4.30-5.90) m/uL Hgb 13.4 (13.0-17.5) gm/dL Hct 41.3 (39.0-53.0) % Plt Count 111 L (150-450) k/uL Comprehensive Metabolic Panel 12/23/18 Range/Units 06:35 Sodium 143 (137-145) mmol/L Potassium 4.7 (3.5-5.1) mmol/L Chloride 106 (98-107) mmol/L Carbon Dioxide 26 (22-30) mmol/L BUN 14 (9-20) mg/dL Creatinine 1.08 (0.66-1.25) mg/dL Glucose 104 H (74-99) mg/dL Calcium 8.9 (8.4-10.2) mg/dL AST 34 (17-59) U/L ALT 12 L (21-72) U/L Alkaline Phosphatase 58 (38-126) U/L Total Protein 6.8 (6.3-8.2) g/dL Albumin 3.6 (3.5-5.0) g/dL Current Medications Generic Name Dose Route Start Last Admin Trade Name Freq PRN Reason Stop Dose Admin Apixaban 5 mg 12/23/18 13:15 Eliquis PO BID ROGER Aspirin 81 mg 12/22/18 09:00 12/23/18 08:16 Aspirin PO 81 mg DAILY ROGER Administration Atorvastatin Calcium 20 mg 12/22/18 21:00 12/22/18 20:53 Lipitor PO 20 mg HS ROGER Administration Famotidine 20 mg 12/23/18 09:00 12/23/18 08:16 Pepcid PO 20 mg DAILY ROGER Administration Finasteride 5 mg 12/22/18 09:00 12/23/18 08:16 Proscar PO 5 mg DAILY ROGER Administration Glipizide 2.5 mg 12/22/18 21:00 12/22/18 20:53 Glucotrol PO 2.5 mg HS ROGER Administration Ceftriaxone Sodium 1 gm/ 50 mls @ 100 mls/hr 12/22/18 21:00 12/22/18 20:54 Sodium Chloride IVPB 100 mls/hr HS ROGER Administration Latanoprost 1 drops 12/22/18 21:00 12/22/18 21:03 Xalatan 0.005% BOTH EYES 1 drops HS ROGER Administration Lisinopril 40 mg 12/22/18 09:00 12/23/18 08:16 Zestril PO 40 mg DAILY ROGER Administration Metformin HCl 500 mg 12/22/18 21:00 12/22/18 20:53 Glucophage PO 500 mg HS ROGER Administration Pantoprazole Sodium 40 mg 12/23/18 07:30 12/23/18 08:16 Protonix PO 40 mg AC-BRKFST ROGER Administration Tamsulosin HCl 0.4 mg 12/22/18 21:00 12/22/18 20:53 Flomax PO 0.4 mg HS ROGER Administration Intake and Output 12/22/18 12/23/18 12/23/18 22:59 06:59 14:59 Intake Total 50 590 Balance 50 590 Intake: Intake, IV Titration 50 Amount cefTRIAXone 1 gm In 50 Sodium Chloride 0.9% 50 ml @ 100 mls/hr IVPB HS ROGER Rx#:[id number] Oral 590 Other: Voiding Method Toilet Toilet # Voids 2 12/23/18 06:35 12/23/18 06:35
[2018-12-23] MEDS ORDERED: METOPROLOL TARTRATE 25 MG TAB PO SCH (13:30)
[2018-12-23 14:10] VITALS: BP 164/94; PULSE 84; TEMP 98.5
--- NOTE | 2018-12-23 14:53 | P.DS ---
Providers Date of admission: 12/22/18 06:17 Expected date of discharge: 12/23/18 Attending physician: Kika Yousif Consults: 12/22/18 14:55 Consult Physician Routine Consulting Provider: Kerri Valladares Consult Reason/Comments: abnormal EKG Do you want consulting provider notified?: Yes Primary care physician: Bryce Hazel [place] [facility] Course: Discharge diagnosis 1. Urinary tract infection with sepsis on admission. Febrile and Lactic acid 2.1 on admission. UA showing moderate amount of leukocyte Estrace. Urine culture negative. We'll continue Ceftin for 7 more days at discharge 2. History of frequent UTIs due to known history of BPH. Patient reports he is followed with the urologist out of [place] 3. Benign prostatic hypertrophy. Patient maintained on Flomax and Proscar 4. Diabetes mellitus type 2. Home meds resumed 5. Hyperlipidemia. Statin resumed 6. History of essential hypertension 7. Bilateral nonhealing wounds to right ankle. Patient reports he follows regularly with wound care and Dr. Tirado. Wounds are improving per patient 8. Abnormal EKG: Cardiology reviewed and patient was found to have evidence of paroxysmal atrial fibrillation. Cardiology start patient on Eliquis which patient is a $40 co-pay for. They also placed him on Lopressor 25 mg twice a day. Cardiology has cleared patient for discharge. He will follow-up with his financial administrative assistant in [place] at the end of December. Hospital course This is an 88-year-old male patient of Dr. Hazel. Patient presented to ER with complaints of symptoms of urinary tract infection. Patient reports that he gets frequent urinary tract infections due to his known prostatic hypertrophy. Patient states that throughout the night he gets symptoms of dysuria and hesitancy that are usually associated with urinary tract infection. Patient reports over the past 2 days he's had minimum symptoms but symptoms became progressively worse throughout night. Patient reports that he feels shaky and weak when he gets a urinary tract infection. Additional medical history includes diabetes mellitus, hypertension, sciatica and ex-smoker. Patient reports he has followed with urology in [place] in the past. Lactic acid 2.1. Urinary analysis showing large amount of leukocyte Estrace. Urine culture has been ordered. Patient started on Rocephin. Repeat lactic acid 1.3. Patient is currently resting comfortably in bed. Patient reports improvement with 1 dose of IV antibiotics. Patient denies chest pain or shortness of breath. Patient denies nausea vomiting or diarrhea. Patient denies any urinary burning or frequency. 12/23/2018 patient is medically stable for discharge. He was cleared by cardiology for discharge. History for UTI with sepsis on this admission. Urine culture shows no growth. However, patient did have urinary symptoms and lactic acid was elevated at 2.1 on admission and he is febrile. Patient be discharged home with Ceftin 500 mg twice a day for 7 more days. Patient to follow-up with Dr. Hazel in 1 week. Patient also follow-up with his [place] financial administrative assistant at the end of this month. He was diagnosed with paroxysmal atrial fibrillation d uring this admission. I started on Eliquis 5 mg twice a day and Lopressor 25 mg twice a day. Cardiology has ordered an echocardiogram, which will be completed prior to patient's discharge. He'll follow up with those results at Dr. Hazel's office and with his financial administrative assistant in [place]. Patient is been so for discharge. Please refer to chart for any further details. I performed an examination of the patient and discussed their management with the physician Gender Studies Professor. I have reviewed the Physician Gender Studies Professor's notes and agree with the documented findings and plan of care Patient Condition at Discharge: Stable Plan - Discharge Summary Discharge Rx Participant: No New Discharge Prescriptions: New Cefuroxime Axetil [Ceftin] 500 mg PO BID 3 Days #14 tab Metoprolol Tartrate [Lopressor] 25 mg PO BID #60 tab Apixaban [Eliquis] 5 mg PO BID tab Continue Omeprazole 40 mg PO AC-BRKFST Finasteride [Proscar] 5 mg PO DAILY Latanoprost/Pf [Latanoprost 0.005% Eye Drop] 1 drop BOTH EYES HS Enalapril [Vasotec] 20 mg PO DAILY metFORMIN HCL [Glucophage] 500 mg PO HS Atorvastatin Calcium [Lipitor] 20 mg PO HS glipiZIDE XL [Glucotrol XL] 2.5 mg PO HS Tamsulosin HCl [Flomax] 0.4 mg PO HS Naproxen Sod/Diphenhydramine [Aleve Pm Caplet] 2 each PO HS Discontinued Aspirin 81 mg PO DAILY Discharge Medication List Omeprazole 40 mg PO AC-BRKFST 08/04/13 [History] Finasteride [Proscar] 5 mg PO DAILY 12/22/17 [History] Atorvastatin Calcium [Lipitor] 20 mg PO HS 12/22/18 [History] Enalapril [Vasotec] 20 mg PO DAILY 12/22/18 [History] Latanoprost/Pf [Latanoprost 0.005% Eye Drop] 1 drop BOTH EYES HS 12/22/18 [History] Naproxen Sod/Diphenhydramine [Aleve Pm Caplet] 2 each PO HS 12/22/18 [History] Tamsulosin HCl [Flomax] 0.4 mg PO HS 12/22/18 [History] glipiZIDE XL [Glucotrol XL] 2.5 mg PO HS 12/22/18 [History] metFORMIN HCL [Glucophage] 500 mg PO HS 12/22/18 [History] Apixaban [Eliquis] 5 mg PO BID tab 12/23/18 [Rx] Cefuroxime Axetil [Ceftin] 500 mg PO BID 3 Days #14 tab 12/23/18 [Rx] Metoprolol Tartrate [Lopressor] 25 mg PO BID #60 tab 12/23/18 [Rx] Follow up Appointment(s)/Referral(s): Bryce Hazel MD [Primary Care Provider] - 1 Week Activity/Diet/Wound Care/Special Instructions: Follow up with Bank Officer in [place] at the end of December Discharge Disposition: HOME SELF-CARE
--- NOTE | 2018-12-24 17:33 | ECHOF ---
Referral Reason:afib MEASUREMENTS -------- HEIGHT: 190.5 cm WEIGHT: 99.8 kg BP: RVIDd: 4.5 cm (< 3.3) IVSd: 1.7 cm (0.6 - 1.1) LVIDd: 4.0 cm (3.9 - 5.3) LVPWd: 1.7 cm (0.6 - 1.1) IVSs: 2.0 cm LVIDs: 2.7 cm LVPWs: 2.1 cm LAESV Index (A-L): 48.02 ml/m Ao Diam: 3.5 cm (2.0 - 3.7) AV Cusp: 2.1 cm (1.5 - 2.6) LA Diam: 5.5 cm (2.7 - 3.8) TAPSE: 2.3 cm RAP: 5.00 mmHg RVSP: 39.83 mmHg FINDINGS -------- Atrial fibrillation. This was a technically difficult study with suboptimal apical views. The left ventricular size is normal. There is moderate concentric left ventricular hypertrophy. O verall left ventricular systolic function is normal with, an EF between 55 - 60 %. Left ventricular fillimg pressure cannot be estimated due to Atrial fibrillation. The right ventricle is severely enlarged. The right ventricular systolic function is mildly impaire d. LA is severely dilated >40 ml/m2 RA appears enlarged. Lumason was used Interatrial and interventricular septum intact. The aortic valve was not well visualized. There is no evidence of aortic regurgitation. There is no evidence of aortic stenosis. Mild mitral regurgitation is present. Mild tricuspid regurgitation present. There is mild pulmonary hypertension. The right ventricular systolic pressure, as measured by Doppler, is 39.83mmHg. There is no pulmonic regurgitation present. The aortic root size is normal. IVC Not well visulized. There is no pericardial effusion. CONCLUSIONS -------- 1. Atrial fibrillation. 2. This was a technically difficult study with suboptimal apical views. 3. The left ventricular size is normal. 4. There is moderate concentric left ventricular hypertrophy. 5. Overall left ventricular systolic function is normal with, an EF between 55 - 60 %. 6. Left ventricular fillimg pressure cannot be estimated due to Atrial fibrillation. 7. The right ventricle is severely enlarged. 8. The right ventricular systolic function is mildly impaired. 9. LA is severely dilated >40 ml/m2 10. RA appears enlarged. 11. Lumason was used 12. Interatrial and interventricular septum intact. 13. The aortic valve was not well visualized. 14. There is no evidence of aortic regurgitation. 15. There is no evidence of aortic stenosis. 16. Mild mitral regurgitation is present. 17. Mild tricuspid regurgitation present. 18. There is mild pulmonary hypertension. 19. The right ventricular systolic pressure, as measured by Doppler, is 39.83mmHg. 20. There is no pulmonic regurgitation present. 21. The aortic root size is normal. 22. IVC Not well visulized. 23. There is no pericardial effusion. [employer]: Lis Rangel RDCS
== END 2018-12-23 16:14 | disposition home or self-care (01) ==
LOC: EC 03:48 → 3NMEDONC 06:17
PROVIDERS: ADMIT Internal Medicine; ATTEND Internal Medicine
DX: N39.0 Urinary tract infection, site not specified (principal); A41.9 Sepsis, unspecified organism; Z87.440 Personal history of urinary (tract) infections; N40.0 Benign prostatic hyperplasia without lower urinary tract symptoms; E78.5 Hyperlipidemia, unspecified; I10 Essential (primary) hypertension; I44.0 Atrioventricular block, first degree; I48.0 Paroxysmal atrial fibrillation; E11.51 Type 2 diabetes mellitus with diabetic peripheral angiopathy without gangrene; R94.31 Abnormal electrocardiogram [ECG] [EKG]; S91.001A Unspecified open wound, right ankle, initial encounter; Z87.891 Personal history of nicotine dependence; M54.30 Sciatica, unspecified side; E66.9 Obesity, unspecified; Z68.27 Body mass index [BMI] 27.0-27.9, adult; Z79.82 Long term (current) use of aspirin; Z79.899 Other long term (current) drug therapy; Z79.84 Long term (current) use of oral hypoglycemic drugs; Z79.1 Long term (current) use of non-steroidal anti-inflammatories (NSAID); E87.2 Acidosis
CPT/HCPCS: 96365; 96376; 96361; 99285; 36415; 93005 ×2; 97162; 97535; 97166; 80053 ×2; 83605; 85025 ×2; 85610; 85730; 81001; 87040; 87086; G0378 ×2; C8929; S0138 ×2; J0696; Q9950; 93306

== ENCOUNTER → 2019-09-26 | Outpatient (CLI) | payer MEDICARE ==
[2019-09-26 10:20] LABS: HCT 42.6 % (39.0-53.0); MCV 90.9 fL (80.0-100.0); Mean Platelet Volume 9.7; Platelet Count 121 k/uL (150-450); RBC 4.69 m/uL (4.30-5.90); RDW 13.6 % (11.5-15.5)
[2019-09-26 16:52] LABS: African American GFR (CKD) 56.9 (60.0-200.0); Albumin 4.1 g/dL (3.80-4.90); Albumin/Globulin Ratio 1.64 (1.60-3.17); Anion Gap 7.2 mmol/L (4.00-12.00); BUN/Creat Ratio 18.46 Ratio (12.00-20.00); Carbon Dioxide 28.8 mmol/L (21.6-31.8); Globulin 2.5 g/dL (1.6-3.3); Non-African American GFR(CKD) 49.1 (60.0-200.0); Potassium 4.7 mmol/L (3.5-5.5); Total Bilirubin 0.6 mg/dL (0.2-1.2); Total Protein 6.6 g/dL (6.2-8.2); Uric Acid 6.1 mg/dL (3.7-8.7)
[2019-09-26 17:24] LABS: Erythrocyte Sedimentation Rate 10 mm/Hr (0-20)
[2019-09-26 18:17] LABS: Hemoglobin A1C 6.5 % (4.0-6.0)
== END | disposition home or self-care (01) ==
LOC: LABWHC1 08:13
PROVIDERS: ATTEND Internal Medicine
DX: I70.90 Unspecified atherosclerosis (principal); E11.9 Type 2 diabetes mellitus without complications; E78.5 Hyperlipidemia, unspecified; Z12.5 Encounter for screening for malignant neoplasm of prostate; E55.9 Vitamin D deficiency, unspecified
CPT/HCPCS: 80053; 85652; 84550; 85027; 82306; 83036; 36415; G0103

== ENCOUNTER → 2021-08-14 | Outpatient (CLI) | payer MEDICARE ==
[2021-08-14 23:02] LABS: Basophils # (A) 0.04 X 10*3/uL (0.00-0.10); Basophils % (A) 0.7 %; Eosinophils # (A) 0.27 X 10*3/uL (0.04-0.35); Eosinophils % (A) 4.9 %; HCT 42.6 % (39.6-50.0); HGB 12.7 g/dL (13.0-17.0); Immature Grans, Automated 0.2 %; Lymphocytes # (A) 1.26 X 10*3/uL (0.90-5.00); MCHC 29.8 g/dL (32.0-37.0); MCV 90.6 fL (80.0-97.0); Mean Platelet Volume 11.6 fL (9.5-12.2); Monocytes # (A) 0.52 X 10*3/uL (0.20-1.00); Monocytes % (A) 9.5 %; NRBC Per 100 WBC 0 /100 WBCS (0.0-0.0); Neutrophils # (A) 3.38 X 10*3/uL (1.80-7.70); Neutrophils % (A) 61.7 %; Platelet Count 148 X 10*3/uL (140-440); RDW 16.3 % (11.5-14.5); WBC 5.48 X 10*3/uL (4.50-10.00)
[2021-08-14 23:17] LABS: Erythrocyte Sedimentation Rate 7 mm/Hr (0-20)
[2021-08-14 23:40] LABS: ALT 15 U/L (10-49); AST 17 U/L (14-35); African American GFR (CKD) 59.2 (60.0-200.0); Albumin 4.1 g/dL (3.8-4.9); Albumin/Globulin Ratio 1.67 (1.60-3.17); Alkaline Phosphatase 65 U/L (41-126); BUN/Creat Ratio 17.68 Ratio (12.00-20.00); Blood Urea Nitrogen 22.1 mg/dL (9.0-27.0); Calcium 8.9 mg/dL (8.7-10.3); Carbon Dioxide 27.6 mmol/L (20.0-27.5); Chloride 103 mmol/L (96-109); Chol/HDL Ratio 3.24 Ratio; Globulin 2.5 g/dL (1.6-3.3); Glucose 99 mg/dL (70-110); Non-African American GFR(CKD) 51.1 (60.0-200.0); Potassium 4.3 mmol/L (3.5-5.5); Sodium 140 mmol/L (135-145); Total Protein 6.6 g/dL (6.2-8.2)
== END | disposition home or self-care (01) ==
LOC: LABWHC1 08:46
PROVIDERS: ATTEND Internal Medicine
DX: E11.9 Type 2 diabetes mellitus without complications (principal); E78.5 Hyperlipidemia, unspecified
CPT/HCPCS: 36415; 80053; 80061; 83036; 84153; 84550; 85025; 85652